=== PATIENT | female | born 1935 | race Caucasian/White ===

== ENCOUNTER 2018-04-01 21:13 | Inpatient (IN) | payer OTHER ==
[~2018-04-01] VITALS: Ht 160 cm; Wt 49.9 kg
[2018-04-01] MEDS ORDERED: PLAVIX75 MG (21:29)
[2018-04-10] MEDS ORDERED: SIMVASTATIN20 MG PO (12:09)
[2018-04-10] MEDS ORDERED: FLAGYL500MG PO (12:09)
== END 2018-04-10 18:36 | disposition home or self-care (01) | DRG 387 ==
LOC: ER 21:13 → SURH 04-02 11:35 → SEC-K 04-02 11:35 → SURH 04-02 13:04
PROC: 3E0336Z Introduction of Nutritional Substance into Peripheral Vein, Percutaneous Approach (ICD-10-PCS; 2018-04-02)
PROC: 8E0ZXY6 Isolation (ICD-10-PCS; 2018-04-02)
PROC: B345ZZZ Ultrasonography of Bilateral Common Carotid Arteries (ICD-10-PCS; 2018-04-04)
PROC: B348ZZZ Ultrasonography of Bilateral Internal Carotid Arteries (ICD-10-PCS; 2018-04-04)
PROC: B246ZZZ Ultrasonography of Right and Left Heart (ICD-10-PCS; 2018-04-04)
PROC: BD13YZZ Fluoroscopy of Small Bowel using Other Contrast (ICD-10-PCS; 2018-04-04)
PROC: 05H633Z Insertion of Infusion Device into Left Subclavian Vein, Percutaneous Approach (ICD-10-PCS; principal; 2018-04-07)
DX: K50.018 Crohn's disease of small intestine with other complication (principal); E87.6 Hypokalemia; Z86.73 Personal history of transient ischemic attack (TIA), and cerebral infarction without residual deficits; I11.9 Hypertensive heart disease without heart failure; A04.72 Enterocolitis due to Clostridium difficile, not specified as recurrent; F17.210 Nicotine dependence, cigarettes, uncomplicated

== ENCOUNTER 2018-04-28 08:21 | Inpatient (IN) | payer OTHER ==
[~2018-04-28] VITALS: Ht 157.5 cm; Wt 49.9 kg
[~2018-04-28 08:21] MED LIST: FLAGYL500MG PO; PLAVIX75 MG; SIMVASTATIN20 MG PO
--- NOTE | 2018-04-28 08:26 | NUR ---
PACIENTE ALERTA Y ORIENTADA EN [place] ESFERAS, REFIERE DOLOR INTERMITENTE GENERALIZADO EN TODO EL ABDOMEN DESDE MARKIE. TAMBIEN REFIERE NICK PRESENTANDO 2-3 VOMITOS COLOR KELLY DESDE QUE COMENZARON LOS SINTOMAS. PACIENTE REFIERE HX MEDICO DE HBP, CHRON'S DISEASE Y STROKE (2016). PACIENTE LLEGA CANALIZADA POR PARAMEDICOS EN CUBITAL BRAZO LT PATENTE Y PERI DE S/S DE FLEBITIS E INFILTRACION, RECIBIENDO 0.9% NSS A KVO.
--- NOTE | 2018-04-28 08:30 | NUR ---
PTE EVALUADAPOR DR LEA QUIEN [place]. MS Samantha HERNANDEZ ORIENTA SOBRE [place], LO CUAL REFIERE ENTENDER, REALIZAPRUEBAS DE LABORATORIO Y ADMINISTRA MEDICAMENTOS RITA ORDEN MEDICA Y SIGUIENDO MEDIDAS ASEPTICAS. SE NOTIFICA CT A PERSONAL DE TURNO.
[2018-05-04] MEDS ORDERED: FLAGYL500MG PO (11:21)
[2018-05-04] MEDS ORDERED: RAYOS5 MG PO (11:23)
[2018-05-04] MEDS ORDERED: INTESTINEX680 M1 PO (11:24)
[2018-05-04] MEDS ORDERED: PROTONIX40 MG PO (11:24)
[2018-05-04] MEDS ORDERED: ZANTAC150 MG PO (11:25)
[2018-05-04] MEDS ORDERED: CARAFATE1 GM PO (11:26)
[2018-05-04] MEDS ORDERED: ALPRAZOLAM1 MG PO (11:27)
== END 2018-05-04 13:06 | disposition home or self-care (01) | DRG 386 ==
LOC: ER 08:21 → SEC-K 16:07 → SURH 16:07 → SEC-K 17:22 → SURH 18:33
PROVIDERS: ADMIT Internal Medicine
PROC: BW21ZZZ Computerized Tomography (CT Scan) of Abdomen and Pelvis (ICD-10-PCS; principal; 2018-04-28)
PROC: 02HV33Z Insertion of Infusion Device into Superior Vena Cava, Percutaneous Approach (ICD-10-PCS; 2018-04-29)
DX: K50.811 Crohn's disease of both small and large intestine with rectal bleeding (principal); K91.89 Other postprocedural complications and disorders of digestive system; E87.6 Hypokalemia; K52.89 Other specified noninfective gastroenteritis and colitis

== ENCOUNTER 2018-05-15 01:04 | Inpatient (IN) | payer OTHER ==
[~2018-05-15] VITALS: Ht 152.4 cm; Wt 49.9 kg
[~2018-05-15 01:04] MED LIST changes: +ALPRAZOLAM1 MG PO; +CARAFATE1 GM PO; +INTESTINEX680 M1 PO; +PROTONIX40 MG PO; +RAYOS5 MG PO; +ZANTAC150 MG PO
--- NOTE | 2018-05-15 01:06 | NUR ---
SE RECIBE PACIENTE ALERTA Y ORIENTADA X3 DE UNIDAD DE AMBULANCIA QUE REFIERE DOLOR WAYNE DE ABDOMEN DEBIDO A HEATH DIAGNOSTICO DE CHRON'S DISEASE DESDE MARKIE POR LA TARDE. PACIENTE NIEGA NICK VOMITADO.
--- NOTE | 2018-05-15 02:33 | NUR ---
BAJO MEDIDAS ASEPTICAS AL PACIENTE SE LE CANALIZA Y SE LE JOANNA MUESTRAS DE ANIYAH PARA REALIZAR LABORATORIOS. RITA ORDEN MEDICA SE LE ADMINSITRA DEMEROL Y PHENERGAN IM EN GLUTEO DERECHO SUPERIOR LUEGO DE HABERLE ORIENTADO SOBRE LOS EFECTOS. PACIENTE SE MANTIENE BAJO OBSERVACION PARA CAMBIOS. PACIENTE TIENE CT PENDIENTE. SE LE CRISTA GASTROVIEW Y SE LE ORIENTA SOBRE PROCESO DE CT SCAN.
--- NOTE | 2018-05-15 07:28 | NUR ---
SE RECIBE PTE DEL TURNO ANTERIOR, ALERTA, EN COMPANIA DE FAMILIAR. SE OBSERVA CON BUEN PATRON RESPIRATORIO Y PILE TIBIA AL TACTO. IV PATENTE Y PERI DE EDEMA O ERITEMA CON 0.9% NSS @ 150 ML/HR. PTE PENDIENTE A RE EVALUACION MEDICA.
--- NOTE | 2018-05-15 08:51 | NUR ---
SE COLOCA NGT EN FOSA NASAL RT, PTE TOLERA EL MISMO. AL MOMENTO DRENA APROXIMADAMENTE 100ML DE CONTENIDO GASTRICO COLOR ALLIE. SE MANTIENE A SUCCION INTERMITENTE, EL MISMO PATENTE.
[2018-05-30] MEDS ORDERED: NORVASC2.5 M1 PO (11:36)
[2018-05-30] MEDS ORDERED: SIMVASTATIN20 MG PO (11:37)
[2018-05-30] MEDS ORDERED: ZANTAC150 MG PO (11:37)
[2018-05-30] MEDS ORDERED: INTESTINEX680 M1 PO (11:37)
[2018-05-30] MEDS ORDERED: PROTONIX40 MG PO (11:37)
[2018-05-30] MEDS ORDERED: CARAFATE1 GM PO (11:37)
[2018-05-30] MEDS ORDERED: ALPRAZOLAM1 MG PO (11:38)
[2018-05-30] MEDS ORDERED: Coreg 3.125MG TABLET PO (11:38)
== END 2018-05-30 18:52 | disposition home or self-care (01) | DRG 330 ==
LOC: ER 01:04 → MEDI 11:37 → MEDJ 11:37 → SURH 11:37 → SEC-K 13:40 → MEDI 14:13 → MEDJ 05-16 17:16 → SURH 05-19 09:32
PROVIDERS: Surgery; ADMIT Internal Medicine
PROC: BW21ZZZ Computerized Tomography (CT Scan) of Abdomen and Pelvis (ICD-10-PCS; 2018-05-15)
PROC: B246ZZZ Ultrasonography of Right and Left Heart (ICD-10-PCS; 2018-05-17)
PROC: 02HV33Z Insertion of Infusion Device into Superior Vena Cava, Percutaneous Approach (ICD-10-PCS; 2018-05-17)
PROC: 0DTB0ZZ Resection of Ileum, Open Approach (ICD-10-PCS; 2018-05-18)
PROC: 0DTK0ZZ Resection of Ascending Colon, Open Approach (ICD-10-PCS; principal; 2018-05-18 14:00)
PROC: 3E0F7GC Introduction of Other Therapeutic Substance into Respiratory Tract, Via Natural or Artificial Opening (ICD-10-PCS; 2018-05-19)
DX: K56.690 Other partial intestinal obstruction (principal); K50.012 Crohn's disease of small intestine with intestinal obstruction; J90 Pleural effusion, not elsewhere classified; J98.11 Atelectasis; K27.9 Peptic ulcer, site unspecified, unspecified as acute or chronic, without hemorrhage or perforation; E87.6 Hypokalemia; I11.9 Hypertensive heart disease without heart failure; D72.828 Other elevated white blood cell count; I25.10 Atherosclerotic heart disease of native coronary artery without angina pectoris; K44.9 Diaphragmatic hernia without obstruction or gangrene; K21.9 Gastro-esophageal reflux disease without esophagitis; J44.9 Chronic obstructive pulmonary disease, unspecified; F17.210 Nicotine dependence, cigarettes, uncomplicated; N28.1 Cyst of kidney, acquired; Z86.73 Personal history of transient ischemic attack (TIA), and cerebral infarction without residual deficits; M62.58 Muscle wasting and atrophy, not elsewhere classified, other site; K52.89 Other specified noninfective gastroenteritis and colitis

== ENCOUNTER 2018-08-21 12:03 | Inpatient (IN) | payer OTHER ==
[~2018-08-21] VITALS: Ht 152.4 cm; Wt 49.9 kg
[~2018-08-21 12:03] MED LIST changes: +Coreg 3.125MG TABLET PO; +NORVASC2.5 M1 PO
[2018-08-21] MEDS ORDERED: CARVEDILOL ER10 MG (12:26)
[2018-08-29] MEDS ORDERED: CARVEDILOL3.125 MG PO (15:51)
[2018-08-30] MEDS ORDERED: INTEGRA PLUS C1 EACH PO (11:01)
[2018-08-30] MEDS ORDERED: AMLODIPINE BESYL5 MG PO (11:02)
[2018-08-30] MEDS ORDERED: SIMVASTATIN20 MG PO (11:02)
[2018-08-30] MEDS ORDERED: CHOLESTYRAMINE P4 GM PO (11:02)
[2018-08-30] MEDS ORDERED: ALPRAZOLAM1 MG PO (11:04)
[2018-08-30] MEDS ORDERED: Intestinex CAP PO (11:04)
[2018-08-30] MEDS ORDERED: Coreg 3.125MG TABLET PO (11:04)
[2018-08-30] MEDS ORDERED: ENTOCORT EC3 MG PO (11:05)
== END 2018-08-30 13:38 | disposition home or self-care (01) | DRG 388 ==
LOC: ER 12:03 → SURH 16:11 → MEDJ 16:11 → ICU-2 20:04 → SURH 08-25 12:56
PROVIDERS: ADMIT Internal Medicine
PROC: 0DH67UZ Insertion of Feeding Device into Stomach, Via Natural or Artificial Opening (ICD-10-PCS; principal; 2018-08-21)
PROC: 3E0G76Z Introduction of Nutritional Substance into Upper GI, Via Natural or Artificial Opening (ICD-10-PCS; 2018-08-21)
PROC: BW21ZZZ Computerized Tomography (CT Scan) of Abdomen and Pelvis (ICD-10-PCS; 2018-08-21)
PROC: 4A033R1 Measurement of Arterial Saturation, Peripheral, Percutaneous Approach (ICD-10-PCS; 2018-08-22)
PROC: B246ZZZ Ultrasonography of Right and Left Heart (ICD-10-PCS; 2018-08-22)
PROC: 02HV33Z Insertion of Infusion Device into Superior Vena Cava, Percutaneous Approach (ICD-10-PCS; 2018-08-23)
PROC: 4A12X4Z Monitoring of Cardiac Electrical Activity, External Approach (ICD-10-PCS; 2018-08-25)
PROC: 3E0F7GC Introduction of Other Therapeutic Substance into Respiratory Tract, Via Natural or Artificial Opening (ICD-10-PCS; 2018-08-28)
DX: K56.690 Other partial intestinal obstruction (principal); I21.4 Non-ST elevation (NSTEMI) myocardial infarction; K50.012 Crohn's disease of small intestine with intestinal obstruction; J98.11 Atelectasis; E87.6 Hypokalemia; I11.9 Hypertensive heart disease without heart failure; M62.59 Muscle wasting and atrophy, not elsewhere classified, multiple sites; K52.89 Other specified noninfective gastroenteritis and colitis; K63.89 Other specified diseases of intestine

== ENCOUNTER 2019-04-11 08:22 | Emergency (ER) | payer OTHER ==
[~2019-04-11] VITALS: Ht 165.1 cm; Wt 59.4 kg
[~2019-04-11 08:22] MED LIST changes: +AMLODIPINE BESYL5 MG PO; +CARVEDILOL ER10 MG; +CARVEDILOL3.125 MG PO; +CHOLESTYRAMINE P4 GM PO; +ENTOCORT EC3 MG PO; +INTEGRA PLUS C1 EACH PO; +Intestinex CAP PO
== END 2019-04-11 11:10 | disposition home or self-care (01) ==
LOC: ER 08:22
DX: R51 Headache (principal)

== ENCOUNTER 2020-12-22 14:38 | Emergency (ER) | payer OTHER ==
[~2020-12-22] VITALS: Ht 152.4 cm; Wt 61.2 kg
== END 2020-12-22 20:45 | disposition home or self-care (01) ==
LOC: ER 14:38
DX: S00.03XA Contusion of scalp, initial encounter (principal); S20.213A Contusion of bilateral front wall of thorax, initial encounter; M54.2 Cervicalgia; W18.09XA Striking against other object with subsequent fall, initial encounter; Y93.89 Activity, other specified; Y92.018 Other place in single-family (private) house as the place of occurrence of the external cause; Y99.8 Other external cause status

== ENCOUNTER 2021-04-24 11:01 | Inpatient (IN) | payer OTHER ==
[~2021-04-24] VITALS: Ht 157.5 cm; Wt 55.3 kg
[2021-04-28] MEDS ORDERED: ELIQUIS2.5 MG PO (11:41)
[2021-04-28] MEDS ORDERED: ULTRACET PO (11:41)
== END 2021-04-28 16:55 | DRG 522 ==
LOC: ER 11:01 → SEC-K 16:59 → SURH 16:59 → SEC-K 17:10 → SURH 17:11
PROVIDERS: Orthopaedic Surgery; ADMIT Internal Medicine; ATTEND Internal Medicine
PROC: 02HV33Z Insertion of Infusion Device into Superior Vena Cava, Percutaneous Approach (ICD-10-PCS; 2021-04-24)
PROC: 0MTM0ZZ Resection of Left Hip Bursa and Ligament, Open Approach (ICD-10-PCS; 2021-04-27)
PROC: 0SRS03A Replacement of Left Hip Joint, Femoral Surface with Ceramic Synthetic Substitute, Uncemented, Open Approach (ICD-10-PCS; principal; 2021-04-27 17:15)
DX: S72.045A Nondisplaced fracture of base of neck of left femur, initial encounter for closed fracture (principal); N39.0 Urinary tract infection, site not specified; I11.9 Hypertensive heart disease without heart failure; E87.6 Hypokalemia; B96.29 Other Escherichia coli [E. coli] as the cause of diseases classified elsewhere; I73.89 Other specified peripheral vascular diseases; W18.39XA Other fall on same level, initial encounter; Y93.89 Activity, other specified; Y92.89 Other specified places as the place of occurrence of the external cause; Y99.8 Other external cause status; Z20.822 Contact with and (suspected) exposure to COVID-19